=== PATIENT | female | born 1965 | race African-American/Black ===

== ENCOUNTER 2019-12-05 21:31 | Emergency (ER) | payer OTHER ==
[~2019-12-05] VITALS: Ht 170.2 cm; Wt 133.5 kg
[2019-12-05] MEDS ORDERED: CARVEDILOL12.5 MG PO (21:43)
[2019-12-05] MEDS ORDERED: VITAMIN C500 M2 PO (21:43)
[2019-12-05] MEDS ORDERED: KLOR-CON 1010 MEQ PO (21:44)
[2019-12-05] MEDS ORDERED: ACCUPRIL40 MG PO (21:44)
[2019-12-05] MEDS ORDERED: ASA81BEC PO (21:44)
[2019-12-05] MEDS ORDERED: LIPITOR40 MG PO (21:46)
[2019-12-05] MEDS ORDERED: NORVASC (21:46)
[2019-12-05] MEDS ORDERED: WATER PILL (21:47)
[2019-12-05 22:09] LABS: ABSOLUTE EOSINOPHILS 0.3 thou/uL (0.0-0.7); ABSOLUTE LYMPHOCYTES 2.8 thou/uL (0.8-5.3); ABSOLUTE MONOCYTES 0.5 thou/uL (0.0-1.2); ABSOLUTE NEUTROPHILS 2.9 thou/uL (1.6-8.1); BASOPHILS 0.2 %; EOSINOPHILS 4.3 %; HEMATOCRIT 43.9 % (37.0-47.0); HEMOGLOBIN 14.6 gm/dL (12.0-15.0); LYMPHOCYTES 43.3 %; MCH 28.3 pg (26.0-34.0); MCHC 33.2 g/dL (28.0-37.0); MCV 85.3 fL (80.0-100.0); MONOCYTES 7.6 %; MPV 7.7 fl. (7.2-11.1); NUCLEATED RBCS 0 /100WBC; PLATELET COUNT* 252 thou/uL (150-400); POLYS 44.6 %; RBC 5.15 mil/uL (4.20-5.00); RDW-CV 13.8 % (10.5-14.5); WBC 6.5 thou/uL (4.0-11.0)
[2019-12-05 22:23] LABS: CALCIUM 8.8 mg/dL (8.5-10.1); CREATININE 1.5 mg/dL (0.6-1.3); POTASSIUM 3.9 mmol/L (3.5-5.1)
[2019-12-05 22:24] LABS: ALBUMIN 3.3 g/dL (3.4-5.0); MAGNESIUM 1.8 mg/dL (1.8-2.4); TOTAL BILIRUBIN 0.3 mg/dL (<0.1-1.0); TOTAL PROTEIN 7.5 g/dL (6.4-8.2)
[2019-12-06] MEDS ORDERED: ACCUPRIL40 MG PO (01:20)
[2019-12-06] MEDS ORDERED: CARVEDILOL12.5 MG PO (01:20)
[2019-12-06] MEDS ORDERED: KLOR-CON 10 ER10 MEQ PO (01:20)
[2019-12-06] MEDS ORDERED: HYDROCHLOROTHIA25 M1 PO (01:20)
[2019-12-06] MEDS ORDERED: CLONIDINE HCL0.2 M2 PO (01:21)
[2019-12-06 02:00] VITALS: BP 173/90
--- NOTE | 2019-12-06 09:43 | EKG ---
[place] [address] ELECTROCARDIOGRAM REPORT Name: RICHARD NICOLE Room: [facility]#: [id number] Admission: 12/05/19 Attend Phys: Discharge: 12/06/19 Date of : 63 Date of Service: 12/05/192139 Report #: [id number] THIS REPORT FOR: //name// [facility] ED Test Date: 2019-12-05 Test Time: 21:40:40 Pat Name: RICHARD NICOLE Department: Room: Gender: Marker Assembler: CARSON : 1965 Requested By: Mattie Arias Order Number: [id number] MD: Antonio Moore Measurements Intervals [place] Rate: 68 P: 60 CT: 181 QRS: 27 QRSD: 102 T: -33 QT: 377 QTc: 401 Interpretive Statements Sinus rhythm Nonspecific T abnormalities, diffuse leads No previous ECG available for comparison Electronically Signed On 12-06-2019 9:42:56 CDT by Antonio Moore [email or web address] <ELECTRONICALLY SIGNED> By: Antonio Moore MD, [facility] 12/06/19941 39 39 Antonio Moore MD, FACC /EPI
== END 2019-12-06 02:06 | disposition home or self-care (01) ==
LOC: M.ERS 21:31
PROVIDERS: Emergency Medicine
DX: I10 Essential (primary) hypertension (principal); I48.91 Unspecified atrial fibrillation

== ENCOUNTER 2019-12-08 22:46 | Observation (INO) | payer OTHER ==
[~2019-12-08] VITALS: Ht 170.2 cm; Wt 127.9 kg
[~2019-12-08 22:46] MED LIST: ACCUPRIL40 MG PO; ASPIRIN EC325 M1 PO; CARVEDILOL12.5 MG PO; CLONIDINE HCL0.2 M2 PO; HYDROCHLOROTHIA25 M1 PO; KLOR-CON 10 ER10 MEQ PO; KLOR-CON 1010 MEQ PO; LIPITOR40 MG PO; NORVASC; VITAMIN C500 M2 PO; WATER PILL
[2019-12-08 22:51] VITALS: BP 226/123
[2019-12-08 23:06] LABS: ABSOLUTE EOSINOPHILS 0.2 thou/uL (0.0-0.7); ABSOLUTE LYMPHOCYTES 3.6 thou/uL (0.8-5.3); ABSOLUTE MONOCYTES 0.6 thou/uL (0.0-1.2); ABSOLUTE NEUTROPHILS 3.9 thou/uL (1.6-8.1); BASOPHILS 0.2 %; EOSINOPHILS 2.9 %; HEMATOCRIT 46.5 % (37.0-47.0); HEMOGLOBIN 15.6 gm/dL (12.0-15.0); LYMPHOCYTES 42.9 %; MCH 28.7 pg (26.0-34.0); MCHC 33.6 g/dL (28.0-37.0); MCV 85.2 fL (80.0-100.0); MONOCYTES 7.3 %; MPV 7.6 fl. (7.2-11.1); NUCLEATED RBCS 0 /100WBC; PLATELET COUNT* 256 thou/uL (150-400); POLYS 46.7 %; RBC 5.45 mil/uL (4.20-5.00); WBC 8.3 thou/uL (4.0-11.0)
[2019-12-08 23:17] LABS: CALCIUM 8.9 mg/dL (8.5-10.1); CREATININE 1.2 mg/dL (0.6-1.3); POTASSIUM 3.4 mmol/L (3.5-5.1)
[2019-12-08 23:18] LABS: PROTIME 10.4 Seconds (9.20-11.50)
[2019-12-08 23:26] LABS: ALBUMIN 3.5 g/dL (3.4-5.0); MAGNESIUM 1.9 mg/dL (1.8-2.4); TOTAL BILIRUBIN 0.6 mg/dL (<0.1-1.0); TOTAL PROTEIN 8.2 g/dL (6.4-8.2)
[2019-12-08 23:45] LABS: URINE BILIRUBIN NEGATIVE (Negative); URINE BLOOD TRACE (Negative); URINE CLARITY CLEAR; URINE COLOR YELLOW; URINE GLUCOSE-RANDOM NEGATIVE (Negative); URINE KETONES NEGATIVE (Negative); URINE LEUKOCYTES-REFLEX NEGATIVE (Negative); URINE NITRITE-REFLEX NEGATIVE (Negative); URINE PROTEIN TRACE (Negative); URINE UROBILINOGEN 0.2 E.U./dl (0.2-1.0)
[2019-12-09 02:04] VITALS: BP 186/107
[2019-12-09] MEDS ORDERED: NORVASC 2.5 MG2.5 M1 PO (03:53)
[2019-12-09 04:00] VITALS: BP 162/93
[2019-12-09 08:00] VITALS: BP 145/91
--- NOTE | 2019-12-09 09:38 | EKG ---
[place] [address] ELECTROCARDIOGRAM REPORT Name: RICHARD NICOLE Room: [address] M.R.#: [id number] Admission: 12/09/19 Attend Phys: Dax Velazquez Discharge: Date of : 63 Date of Service: 12/08/19 2310 Report #: [id number] THIS REPORT FOR: //name// [facility] ED Test Date: 2019-12-08 Test Time: 23:10:58 Pat Name: RICHARD NICOLE Department: Room: [facility] Gender: F Radiation Engineer: MARIA T : 1965 Requested By: Mattie Arias Order Number: [id number] MD: Harvey Mtz Measurements Intervals [place] Rate: 65 P: 9 CA: 175 QRS: 13 QRSD: 102 T: 6 QT: 387 QTc: 403 Interpretive Statements Sinus rhythm Compared to ECG 12/05/2019 21:40:40 T-wave abnormality no longer present sinus rhythm now noted Electronically Signed On 12-09-2019 9:38:38 CDT by Harvey Mtz [email or web address] <ELECTRONICALLY SIGNED> By: Harvey Mtz MD, FACC 12/09/19 0938 2310 2310 Harvey Mtz MD, [facility] /EPI
--- NOTE | 2019-12-09 09:38 | EKG ---
[place] [address] ELECTROCARDIOGRAM REPORT Name: RICHARD NICOLE Room: [address] M.R.#: [id number] Admission: 12/09/19 Attend Phys: Dax Velazquez Discharge: Date of : 63 Date of Service: 12/08/192249 Report #: [id number] THIS REPORT FOR: //name// [facility] ED Test Date: 2019-12-08 Test Time: 22:50:36 Pat Name: RICHARD NICOLE Department: Room: [address] Gender: F Senior Data Scientist: PEDRO : 1965 Requested By: Mattie Arias Order Number: [id number] Reading MD: Harvey Mtz Measurements Intervals [place] Rate: 113 P: [place]: QRS: 19 QRSD: 87 T: -79 QT: 303 QTc: 416 Interpretive Statements Atrial fibrillation Borderline repolarization abnormality Baseline wander in lead(s) II,III,aVF Compared to ECG 12/05/2019 21:40:40 Sinus rhythm no longer present Electronically Signed On 12-09-2019 9:38:09 CDT by Harvey Mtz [email or web address] <ELECTRONICALLY SIGNED> By: Harvey Mtz MD, FAC 12/09/19 0938 49 49 Harvey Mtz MD, [facility] /EPI
[2019-12-09 12:58] VITALS: BP 137/82
[2019-12-09] MEDS ORDERED: PROPAFENONE 15150 MG PO (13:44)
[2019-12-09 13:46] VITALS: BP 137/82
--- NOTE | 2019-12-12 16:37 | CON ---
[address] [address] CONSULTATION Name: RICHARD NICOLE Room: [address] Aj Gabriel#: [id number] Admission: 12/09/19 Attend Phys: Brigida Bates Discharge: 12/09/19 Date of : 63 Report #: [id number] THIS REPORT FOR: //name// cc: LEAH Cantor family physician/PCP LEAH - Sakshi family physician/PCP ~ THIS REPORT FOR: //name// CC: LEAH physician/PCP Dax Velazquez DATE OF SERVICE: 12/09/2019 CARDIOLOGY CONSULTATION HISTORY OF PRESENT ILLNESS: The patient is a 54-year-old single black female who I was asked to see in the hospital today after she is noted to be in atrial fibrillation. The history is obtained from the patient. She has never been here to [place] before. She does note that in 2011 she was living in [place]. She felt her heart beating fast and she was short of breath. She went to the Emergency Room, was found to be in atrial fibrillation. She was in the hospital for several days. She apparently converted on herself. She was sent home on an aspirin a day and blood pressure medications. She had done well since that time. She does note a couple of years ago she wore a monitor for several weeks and there was no recurrent atrial fibrillation. She was doing well until recently she apparently ran out of her Norvasc and hydrochlorothiazide. Her blood pressure is elevated. Last night; however, she felt her heart beating fast. She felt short of breath and lightheaded. She came to the Emergency Room. She was found to be in atrial fibrillation. She was started on IV diltiazem. She converted to sinus rhythm. I was asked to see her for further evaluation and treatment. She denies any exertional chest pain. She apparently did have a stress test in the past. She does have occasional edema. She has had no leg pain. She has had no syncope. PAST MEDICAL HISTORY: She has had no surgical procedures. She does have a history of glucose intolerance, hyperlipidemia, and hypertension. MEDICATIONS: On admission consisted of carvedilol, quinapril, hydrochlorothiazide, potassium, clonidine, Norvasc. She is no longer on metformin. FAMILY HISTORY: Negative for heart disease. SOCIAL HISTORY: She is single, works at a [employer]. She does not exercise on a regular basis. Lives here in [place] by herself. Quit smoking 3 weeks ago. No alcohol abuse. She quit drinking coffee 3 [place] [address] CONSULTATION Name: RICHARD NICOLE Room: [address] Aj Gabriel#: [id number] Admission: 12/09/19 Attend Phys: Brigida Bates Discharge: 12/09/19 Date of : 63 Report #: [id number] REVIEW OF SYSTEMS: She is overweight, being 5 feet 7 inches, 280 pounds. She does snore at night. No history of stroke, asthma, liver disease, kidney disease, cancer, chronic skin condition. She does have a lot of stress in her life and saw a psychiatrist in the past for anxiety. PHYSICAL EXAMINATION: GENERAL: Revealed a large black female, who appeared in no distress. VITAL SIGNS: She had a blood pressure of 160/90, pulse 60. She is afebrile. HEENT: She was anicteric. Conjunctivae pink. Mucous membranes moist. NECK: Veins difficult to assess due to obesity. No carotid bruits. Neck is supple. CHEST: Clear to auscultation. CARDIOVASCULAR: Regular rate and rhythm, no murmur. ABDOMEN: Obese. EXTREMITIES: Had no pedal edema. Dorsalis pedis pulse 2+ bilaterally. SKIN: Cool and dry. NEUROLOGIC: Nonfocal. LYMPH: No adenopathy. MUSCULOSKELETAL: No joint effusion. RADIOLOGICAL DATA: Her ECG on admission showed atrial fibrillation with rapid ventricular response rate, nonspecific T-wave changes. Her followup ECG showed a sinus rhythm, nonspecific ST-segment changes. Her workup, she had a portable chest x-ray last night that showed no acute abnormality. She actually had a CT scan of the chest using a PE protocol that showed no thoracic aortic aneurysm or dissection, no pulmonary embolus. LABORATORY WORK: Sodium 140, potassium 3.4, creatinine 1.2, glucose 154. Troponin 0.06. BNP 310. White blood cell count 8.3, hemoglobin 15.6. IMPRESSION AND RECOMMENDATIONS: 1. Paroxysmal atrial fibrillation. A second recurrence. I would recommend antiarrhythmic therapy. I would recommend starting Rythmol 150 mg every 8 hours. The patient has a CHARMAINE score of 1. If she has recurrent atrial fibrillation, we would consider anticoagulation. In the meantime, I would continue aspirin 325 mg a day. 2. Hypertension. The patient is on a beta-brii, JAIME inhibitor, calcium brii, diuretic and clonidine. Recommend exercise and weight loss. 3. Obesity. 4. Snoring 1at night, we would rule out sleep apnea. 5. [place] [address] CONSULTATION Name: RICHARD NICOLE Room: [address] Aj Gabriel#: [id number] Admission: 12/09/19 Attend Phys: Brigida Bates Discharge: 12/09/19 Date of : 63 Report #: [id number] 6. History of hyperlipidemia. 7. Tobacco abuse. The patient recently stopped smoking. <ELECTRONICALLY SIGNED> By: Harvey Mtz MD, FACC 12/12/19 1637 1103 [id number] Cristin Mtz MD, FACC /nt
== END 2019-12-09 14:20 | disposition home or self-care (01) ==
LOC: M.ERS 22:46 → M.TBA-ER 12-09 01:21 → M.2W 12-09 01:21
PROVIDERS: Emergency Medicine; ADMIT Internal Medicine; ATTEND Internal Medicine
DX: I48.20 Chronic atrial fibrillation, unspecified (principal); I10 Essential (primary) hypertension; E78.5 Hyperlipidemia, unspecified; G47.33 Obstructive sleep apnea (adult) (pediatric); E66.2 Morbid (severe) obesity with alveolar hypoventilation; R06.83 Snoring; E74.39 Other disorders of intestinal carbohydrate absorption; Z87.891 Personal history of nicotine dependence; Z79.899 Other long term (current) drug therapy; Z68.41 Body mass index [BMI] 40.0-44.9, adult

== ENCOUNTER 2020-10-13 02:46 | Emergency (ER) | payer OTHER ==
[~2020-10-13] VITALS: Ht 170.2 cm; Wt 131.5 kg
[~2020-10-13 02:46] MED LIST changes: +NORVASC 2.5 MG2.5 M1 PO; +PROPAFENONE 15150 MG PO
[2020-10-13 04:13] LABS: ABSOLUTE EOSINOPHILS 0.3 thou/uL (0.0-0.7); ABSOLUTE MONOCYTES 0.4 thou/uL (0.0-1.2); ABSOLUTE NEUTROPHILS 2.6 thou/uL (1.6-8.1); BASOPHILS 0.4 %; EOSINOPHILS 4.2 %; HEMATOCRIT 39.6 % (37.0-47.0); HEMOGLOBIN 13.2 gm/dL (12.0-15.0); LYMPHOCYTES 47.3 %; MCH 28.2 pg (26.0-34.0); MCHC 33.2 g/dL (28.0-37.0); MCV 84.8 fL (80.0-100.0); MONOCYTES 6.8 %; MPV 6.8 fl. (7.2-11.1); NUCLEATED RBCS 0 /100WBC; PLATELET COUNT* 271 thou/uL (150-400); POLYS 41.3 %; RBC 4.67 mil/uL (4.20-5.00); RDW-CV 13.4 % (10.5-14.5); WBC 6.4 thou/uL (4.0-11.0)
[2020-10-13 04:17] LABS: CALCIUM 8.9 mg/dL (8.5-10.1); POTASSIUM 3.3 mmol/L (3.5-5.1)
[2020-10-13 04:21] LABS: ALBUMIN 2.9 g/dL (3.4-5.0); TOTAL BILIRUBIN 0.1 mg/dL (<0.1-1.0)
[2020-10-13 04:39] VITALS: BP 145/79
--- NOTE | 2020-10-13 10:01 | EKG ---
[place] [address] ELECTROCARDIOGRAM REPORT Name: RICHARD NICOLE Room: [facility]#: [id number] Admission: 10/13/20 Attend Phys: Discharge: 10/13/20 Date of : 63 Date of Service: 10/13/20 0255 Report #: [id number] THIS REPORT FOR: //name// [facility] ED Test Date: 2020-10-13 Test Time: 02:55:19 Pat Name: RICHARD NICOLE Department: Room: Gender: Cinder Crusher Operator: : 1965 Requested By: Kitty Barker Order Number: [id number] MD: Harvey Mtz Measurements Intervals [place] Rate: 64 P: 56 TN: 76 QRS: 18 QRSD: 104 T: -13 QT: 404 QTc: 417 Interpretive Statements Sinus rhythm artifact noted Short [place] interval Nonspecific T abnormalities, diffuse leads Compared to ECG 12/08/2019 23:10:58 no change Electronically Signed On 10-13-2020 10:01:31 CDT by Harvey Mtz [email or web address] <ELECTRONICALLY SIGNED> By: Harvey Mtz MD, [facility] 10/13/20 1001 0255 0255 Harvey Mtz MD, [facility] /EPI
== END 2020-10-13 04:39 | disposition home or self-care (01) ==
LOC: M.ERS 02:46
PROVIDERS: Personal Emergency Response Attendant
DX: I10 Essential (primary) hypertension (principal); I48.91 Unspecified atrial fibrillation